=== PATIENT | female | born 1980 | race Caucasian/White ===

== ENCOUNTER 2018-03-27 10:09 | Outpatient (RCR) | payer OTHER | END 2018-06-25 | disposition home or self-care (01) | LOC: WSOT | DX: Z02.71 Encounter for disability determination (principal) ==

== ENCOUNTER → 2018-03-27 | Outpatient (CLI) | payer OTHER ==
[~2018-03-27] MED LIST: AMOXICILLIN 50500 MG PO; AMOXICILLIN 8751 TAB PO; AURALGAN EAR DR15 ML OT; CELEXA 20MG20 MG/TAB; CELEXA40 MG PO; CLONAZEPAM PO; DEPAKOTE ER 50500 MG PO; DESYREL 100MG100 MG PO; GEODON 40MG40 MG PO; KLONOPIN 1MG1 MG PO; KLONOPIN WAFE0.25 MG PO; LATUDA20 MG; LITHIUM 30300 MG/CAP PO; LITHIUM CARBON150 MG PO; LITHIUM8 MEQ/5 ML PO; LORTAB 5/500 501 TAB PO; NO HOME MEDICATIONS; NORCO 325 MG-51 TAB PO; PHENERGAN 25 TA25 MG PO; PREDNISONE20 MG PO; RITE AID LICE T59 ML TP; TAMIFLU 75MG75 MG PO; TRAZADONE HYDR100 MG PO; TRIAMCINOLONE AC0.5% TP; TRILEPTAL 300M300 MG; VENTOLIN0.09 MG; VENTOLIN0.09 MG IH; ZITHROMAX Z PA250 MG PO; ZOFRAN 4MG T4 MG/TAB PO
== END ==
LOC: COL.RAD 11:42
DX: Z02.71 Encounter for disability determination (principal); M25.531 Pain in right wrist

== ENCOUNTER 2020-01-23 20:09 | Emergency (ER) | payer OTHER ==
[~2020-01-23] VITALS: Ht 162.6 cm; Wt 75.0 kg
[2020-01-23 20:20] VITALS: BP 137/93; PULSE 99; TEMP 97.9
== END 2020-01-23 20:36 | disposition left against medical advice (07) ==
LOC: COL.ER 20:09
DX: M54.5 Low back pain (principal); M54.6 Pain in thoracic spine; Z79.52 Long term (current) use of systemic steroids

== ENCOUNTER 2020-01-25 13:31 | Emergency (ER) | payer OTHER ==
[~2020-01-25] VITALS: Ht 162.6 cm; Wt 75.0 kg
[2020-01-25 13:43] VITALS: BP 138/108; TEMP 98.4
[2020-01-25] MEDS ORDERED: FLEXERIL 1010 MG/TAB PO (15:30)
[2020-01-25] MEDS ORDERED: NORCO 325 MG-51 TAB PO (15:30)
[2020-01-25] MEDS ORDERED: LIDODERM 5% PATC1 EA TP (15:30)
[2020-01-25 16:41] VITALS: PULSE 79
== END 2020-01-25 16:29 | disposition home or self-care (01) ==
LOC: COL.ER 13:31
DX: S16.1XXA Strain of muscle, fascia and tendon at neck level, initial encounter (principal); S39.012A Strain of muscle, fascia and tendon of lower back, initial encounter; Z90.710 Acquired absence of both cervix and uterus; Z79.52 Long term (current) use of systemic steroids; V43.52XA Car driver injured in collision with other type car in traffic accident, initial encounter
CPT/HCPCS: J1885

== ENCOUNTER 2021-01-21 12:17 | Emergency (ER) | payer SELFPAY ==
[~2021-01-21 12:17] MED LIST changes: +FLEXERIL 1010 MG/TAB PO; +LIDODERM 5% PATC1 EA TP
== END 2021-01-21 13:14 | disposition left against medical advice (07) ==
LOC: COL.ER 12:17
DX: R69 Illness, unspecified (principal)